=== PATIENT | female | born 1955 | race Caucasian/White ===

== ENCOUNTER 2018-08-26 12:08 | Outpatient (REF) | payer BC, SELFPAY ==
--- NOTE | 2018-08-26 11:15 | PAPFT_PTH ---
PATIENT: Natasha Matamoros LOC: [facility] U#:[id number] AGE/SX: 62/F ROOM: RE08/26/[address]: Mauri Gee : 1955 BED: DIS: 08/26/2018 SPEC #: [id number] RECD: 08/26/18 13:03 STATUS: KIANNA REQ #: [id number] KIT: 08/26/18 11:[address]: Mauri Gee DEPT: [facility] Cytology RECD BY: Ranjana Stevenson Tissues: 1 - CX/ENDOCX FOR PAP SMEARS Procedures: PAP THIN PREP/UVM Screening HPV DNA PROBE Comments: [id number]
== END 2018-08-26 12:28 ==
LOC: NCHCN 12:08
PROVIDERS: PCP Family Medicine; Visit Provider Family Medicine
DX: Z12.4 Encounter for screening for malignant neoplasm of cervix (principal); Z11.51 Encounter for screening for human papillomavirus (HPV)
CPT/HCPCS: 88142; 87624

== ENCOUNTER 2018-09-01 00:34 | Outpatient (CLI) | payer BC, SELFPAY ==
--- NOTE | 2018-09-01 08:36 | DI.US_ITS ---
SYMPTOM/DIAGNOSIS: RECURRENT DVT, ON ELIQUIS DUPLEX VENOUS ULTRASOUND LEFT LOWER EXTREMITY: The study was carried out according to the usual protocol. The superficial, femoral, popliteal and proximal trifurcation in the superior portion of the leg are well seen. Good compressibility is noted throughout. Flow is demonstrated and flow augmentation was easily elicited with calf compression. SUMMARY: There is no evidence of DVT.
== END 2018-09-01 00:54 ==
PROVIDERS: PCP Family Medicine; Visit Provider Family Medicine
DX: Z86.718 Personal history of other venous thrombosis and embolism (principal); Z79.01 Long term (current) use of anticoagulants
CPT/HCPCS: 93971

== ENCOUNTER 2018-09-09 01:20 | Outpatient (CLI) | payer BC, SELFPAY ==
--- NOTE | 2018-09-09 10:01 | DI.RAD_ITS ---
SYMPTOMS/DIAGNOSIS: LT GROIN PAIN, R10.32 LEFT HIP AND PELVIS: Severe left hip DJD is demonstrated with joint space narrowing, articular sclerosis and periarticular hypertrophic spurring. A frontal image of the pelvis also reveals severe DJD involving the right hip.
== END 2018-09-09 01:40 ==
PROVIDERS: PCP Family Medicine; Visit Provider Family Medicine
DX: R10.32 Left lower quadrant pain (principal); M16.0 Bilateral primary osteoarthritis of hip
CPT/HCPCS: 73502

== ENCOUNTER 2018-10-22 14:15 | Outpatient (CLI) | payer BC, SELFPAY ==
--- NOTE | 2018-10-22 13:43 | DI.RAD_ITS ---
SYMPTOM/DIAGNOSIS: LEFT HIP PAIN AP PELVIS. Routine examination was performed. Comparison 09/09/18 In the right hip there is marked narrowing of subchondral sclerosis and prominent osteophytes arising from the acetabulum and femoral head. In the left hip there is marked narrowing of the joint space. There is prominent subchondral sclerosis and fiorella-articular spurring involving the acetabulum in the femoral head. There are mild degenerative changes seen at the sacroiliac joints. The symphysis pubis is intact. No acute fractures identified. The soft tissues are unremarkable. IMPRESSION: Severe osteoarthritis of the hips bilaterally.
== END 2018-10-22 14:35 ==
PROVIDERS: PCP Family Medicine; Visit Provider Physician Assistant
DX: M25.552 Pain in left hip (principal); M17.0 Bilateral primary osteoarthritis of knee; M53.3 Sacrococcygeal disorders, not elsewhere classified
CPT/HCPCS: 72170

== ENCOUNTER 2018-12-18 01:30 | Outpatient (CLI) | payer BC, SELFPAY ==
[2018-12-18 11:50] LABS: HCT 44.6 % (36.0-46.0); Mean Corp. HGB Concentration 33.6 g/dL (32.0-36.0); Mean Corpuscular Hemoglobin 33.6 pg (27.0-33.0); Mean Platelet Volume 10.2 fL (8.0-11.0); Platelet Count 183 x1000/uL (130-400); RBC 4.46 m/cumm (4.00-5.20); RBC Distribution Width 13.2 % (11.7-14.6); White Blood Cell Count 5.12 k/cumm (4.4-10.8)
[2018-12-18 12:23] LABS: Anion Gap 8.5 mmol/L (3-11); BUN 9 mg/dL (7-18); CO2 28.5 mmol/L (21.0-32.0); CREATININE 0.57 mg/dL (0.55-1.02); Calcium 9.6 mg/dL (8.5-10.1); Chloride 104 mmol/L (98-107); Glucose 99 mg/dL (70-100); Potassium 3.7 mmol/L (3.5-5.1); Sodium 141 mmol/L (136-145)
== END 2018-12-18 01:50 ==
PROVIDERS: PCP Family Medicine; Visit Provider Student in an Organized Health Care Education/Training Program
DX: M25.552 Pain in left hip (principal); M16.12 Unilateral primary osteoarthritis, left hip; Z01.812 Encounter for preprocedural laboratory examination; Z01.818 Encounter for other preprocedural examination
CPT/HCPCS: 36415; 80048; 85027; 86850; 86900; 86901

== ENCOUNTER 2018-12-23 10:37 | Inpatient (IN) | payer BC, SELFPAY ==
[2018-12-23] VITALS (10 sets, daily range): BP systolic 78–139; BP diastolic 42–77; PULSE 45–71; RESP 12–19; TEMP 36.2–36.9; O2SAT 94–99
--- NOTE | 2018-12-23 11:07 | NUR.NOTE ---
Nursing Note: Measured and applied to right leg.
[2018-12-23] MEDS: Acetaminophen 500 MG TAB 1000 MG PO ×2 (11:18→19:35)
[2018-12-23] MEDS: Lactated Ringers 1,000 ML 80 ML IV ×2 (11:18→16:05)
[2018-12-23] MEDS: Celecoxib 200 MG CAP 400 MG PO (11:18)
[2018-12-23] MEDS: ceFAZolin 2 GM/50 ML BAG IVPB (12:34)
[2018-12-23] MEDS: Ketorolac 30 MG/ML VIAL (13:53)
[2018-12-23] MEDS: Normal Saline 20 ML VIAL (13:53)
[2018-12-23] MEDS: Bupivacaine 0.25% Pres-Free 30 ML VIAL (13:53)
--- NOTE | 2018-12-23 14:32 | DI.RAD_ITS ---
EXAM: XR HIP LT IN OR CLINICAL HISTORY: LEFT HIP DJD. TECHNIQUE: 2D digital imaging was performed. COMPARISON: XR PELVIS AP from 10/22/2018 FINDINGS: BONES: No acute fracture is present. No bony destructive lesion is seen. JOINTS: No dislocation present. Intraoperative films show placement of a left total hip replacement. The orthopedic hardware appears in good position. SOFT TISSUE: Normal. IMPRESSION: Status post left total hip replacement. Please refer to the procedure report for complete details.
--- NOTE | 2018-12-23 15:38 | DI.RAD_ITS ---
EXAM: XR PELVIS AP INDICATION: Left hip DJD s/p L SHAMIR. COMPARISON: XR PELVIS AP from 10/22/2018 TECHNIQUE: 2D digital imaging was performed. FINDINGS: A left hip prosthesis is in excellent position, surrounding bone intact.
--- NOTE | 2018-12-23 16:51 | ROE_ITS ---
Date of service: 12/23/18 Time of Service: 14:51 Operative Note Operative Note DATE OF PROCEDURE: 12/23/18 PRE-OP DIAGNOSIS: Left Hip Osteoarthritis POST-OP DIAGNOSIS: same PROCEDURE: Left Anterior Total Hip Arthroplasty SURGEON: Carlos Carlos [employer] COACH: Slick Boothe ANESTHESIA: spinal ESTIMATED BLOOD LOSS: 450 PATHOLOGY: none sent COMPLICATIONS: None Patient was transported to: PACU Patient's condition: stable Implants: 1. Depuy [place] Acetabular Component, 54 mm 2. Depuy Acetabular Liner, 54 x 36 mm, +4 lateralized 3. Depuy Corail standard Collared femoral Stem, Size 11 4. Depuy Altrx Ceramic Femoral Head, Size 36+1.5 mm Indications: I have seen Natasha in clinic for symptoms of hip arthritis, confirmed with radiographic findings. Natasha has exhausted nonoperative methods and was having significant limitations in daily function and desired better function and less pain. I discussed the technical details of a hip replacement. I explained the risks of the procedure to include, but not limited to, bleeding, infection, pain, stiffness, fracture, damage to nerves and vessels, damage to muscles and tendons, loosening, instability, leg length inequality, need for repeat procedure, blood clot and cardiopulmonary demise. Despite these risks, Natasha elected to proceed. Findings: There was significant signs of arthritis throughout the hip. Large lateral neck osteophytes were encountered and significant acetabular osteophytes were identified and removed. Procedure Description: Natasha was greeted in the preoperative holding area where the correct side was identified and marked. The consent was reviewed with the patient and signed. The history and physical was updated. All questions were answered. Natasha was taken back to the operating room. A spinal anesthestic was then administered. The patient was placed into the supine position on the operating room table. The patient was then positioned onto the ARCH table. Both feet were wrapped with Webrill cotton wrap along with Coban. The feet were placed in specialized boots for the ARCH table, well seated within the boot and secured. SCDs were applied. The patient was then slid down onto a peroneal post and the nonoperative leg was secured in a leg echavarria attached to the table. The operative side was placed into the ARCH table attachment and bed height and positioning was secured. A preoperative AP pelvis was obtained to serve as a reference for determining leg lengths. Prophylactic antibiotics in the form of cefazolin were administered. 1g of Tranxemic Acid was given intravenously within 30 minutes of incision. The left leg was then prepped with Chloraprep and draped in a standard fashion. A second prep was performed prior to placing the final shower-curtain type drape with Iodine impregnated skin protection. A timeout to confirm correct identity, side and site, procedure, allergies, anesthesia, and medical concerns was performed. An obliquely oriented incision was made starting lateral to the ASIS and running distal over the Tensor Fascia Helen (TFL) muscle belly toward the fibular head, approximately 10cm. The skin and soft tissue was dissected sharply, through Marilynn?s fascia, and to the fascia of the TFL. With the fascia and superior border of the IT band identified, the fascia was incised with a new knife just above any perforators from the IT band. The TFL muscle belly was bluntly dissected away from the fascia and moved laterally. The fat between TFL and rectus was identified to ensure the dissection was not within the TFL. Blunt dissection created space between abductors and the capsule and retractor was placed over the lateral femoral neck. The fibers of the rectus femoris tendon were identified and these were freed from the anterior capsule. A second cobra retractor was placed around the medial femoral neck. The TFL was further retracted laterally to show the deep fascia. Careful dissection through this layer identified three main crossing vessels of the lateral femoral circumflex. These were cauterized in multiple locations and then cut without any noticeable bleeding. The TFL was further released bluntly from the deep fascia to expose anterior hip capsule and fat The Gonzalez orthopaedic retractor was then placed beneath the TFL and against sartorius and medial soft tissues to protect and retract the soft tissues. A T-capsulotomy was then performed starting at the superior lateral acetabulum and moving distally to the intertrochanteric ridge. These capsular flaps were tagged with a No. 1 Ethibond and elevated from within. The capsular flaps were released to the shoulder of the lateral neck and to the lesser trochanter to give excellent visualization of the proximal femur. A neck osteotomy was performed using an oscillating saw based on preoperative templates. This cut started in the shoulder and of the lateral neck and exited medially. The saw was at all times directed medially to avoid injury to the greater trochanter. 6cm of traction was applied to the leg and the osteotomy opened. The femoral head was removed with a corkscrew, making sure to protect the TFL on its exit. This was measured on the back table to determing the starting reamer size. Portions of the rectus obscuring visualization were minimally elevated off the superior acetabulum. An anterior retractor was placed over the anterior wall between capsule and labrum and held with the Gripper retraction system. A posterior retractor was placed similarly. This provided excellent visualization. The contents of the cotyloid fossa were removed with electrocautery and the labrum was removed with a knife. There was a notable floor osteophyte. There was significant chondromalacia of the superior acetabulum. Acetabular reaming began with a 49 mm reamer. This first reaming was directed anterior to posterior and medial to get down to the true floor. This was inspected and reamed until the true floor was reached. I then reamed sequentially up to a 53 mm reamer where good fit was obtained. The larger reamers were oriented based on anatomical reference of the anterior and lateral lopez to ensure proper abduction and anteversion. Positioning and size was confirmed with the fluoroscopy. A 54 mm Depuy [place] acetabular component was selected. The acetabulum was reamed around the periphery with the selected acetabular size to prevent a rim fit. The deep tissues were irrigated. The acetabular component was then impacted in a position of about 40-45 degrees of abduction and 15-20 degrees of anteversion, using the patient?s anatomy as the ultimate landmark. Fluoroscopy was used to confirm this. There was excellent functional consultant of the acetabular component and the inserting handle was removed. The acetabular liner, Depuy 54 x 36 mm polyethylene liner, was inserted and lined up with the tines of the acetabular component. There was no soft tissue interposition. The liner was then impacted into position and confirmed to be well-seated. A portion of the fiorella-articular cocktail was then injected around the acetabulum into the capsule and periosteum. This cocktail consisted of 50cc of 0.25% Bupivicaine and 20cc of Exparel, expanded to a total of 120cc. Traction was released from the femur. The leg was rotated to 120 degrees. Any remaining medial capsule was released until the lesser trochanter was easily palpable. A Chris retractor was placed medially. The lateral capsule was further released into the shoulder to allow access to the greater trochanter. A Chris retractor was placed over the greater trochanter which allowed the trochanter to flip in front of the capsule for excellent exposure. The leg was brought down into maximal extension and 20 degrees of adduction while ensuring there was no impingement on the acetabulum. Any remnant capsule within the trochanter was released. Piriformis and obturator externis were identified and protected. There was excellent access to the proximal femur. The lateral neck remnant was removed with a rongeur. A blunt canal probe was used to identify the canal and trajectory for later broaching. A box osteotome initiated the broach course. A small curved rasp and a curved curette were used to work laterally. Broaching then began with a size 8 Corail broach. This was inserted manually around the trochanter and into the canal before mallet blows. The broach was seated to the neck cut level based on the neck cut and the preoperative template. Sequential broaching was continued until a tight fit was obtained with good rotational control of the femur. A trial standard neck was inserted along with a +1.5 trial head. The leg was brought out of extension and adduction and then reduced with traction and internal rotation. The leg was stable anteriorly in a position of 30 degrees of extension and 90 degrees of external rotation. Fluoroscopy was used to ensure there was no fracture and the stem was seated well. Leg lengths were checked with an AP pelvis and pelvic reference points. Once content with the desired offset and leg lengths, the leg was brought back into extension, external rotation and adduction. The periosteum and surrounding tissue was injected with remaining portion of the fiorella-articular cocktail. The proximal femur was irrigated as well as the deep tissues. The Depuy Corail standard collared stem, size 11, was then manually inserted into the proximal femur making sure to control rotation. It was then malleted into position with light blows, giving breaks to allow bone expansion and decrease risk of fracture. The selected Depuy Altrx Ceramic Head, size 36+1.5 mm, was then placed onto the clean and dry trunnion and secured with impaction onto the tapered fit. The leg was brought back out of extension and adduction and reduced with traction and internal rotation. Stability was confirmed with no shuck at 90 degrees of external rotation and 30 degrees of extension. No impingement through range of motion arc. Final x-ray images were obtained with fluoroscopy to confirm adequate positioning and no intraoperative fracture. The deep tissues were thoroughly irrigated with a pulse lavage. The second dose of TXA 1g was administered intravenously. The capsule was then reapproximated with the previously placed Ethibond sutures. The TFL fascia was finally closed with a No. 2 Stratafix, barbed suture. Deep tissues were then reapproximated with 0 Vicryl and a running 2-0 Vicryl. The skin was closed with a running 4-0 Monocryl in a subcuticular fashion. This was reinforced with skin glue. A Mepilex silver dressing was applied. At the end of the case, all counts were correct. Natasha was transferred to the hospital bed without difficulty and suffering no apparent complication. Natasha has a good prognosis. Physical therapy will start today and without restrictions, weight-bearing as tolerated. Eliquis twice daily will be used for DVT prophylaxis as per her baseline.
--- NOTE | 2018-12-23 18:16 | NUR.NOTE ---
Nursing Note: Pt to MS floor from PACU at 1545. Pt arrived in bed; no transfer needed. VSS. A&Ox3. Family at bedside. Pt oriented to MS floor, call [facility]field, phone etc. Call butterfield within reach. RN will continue to monitor.
[2018-12-23] MEDS: Celecoxib 100 MG CAP PO (19:35)
[2018-12-23] MEDS: Apixaban 5 MG TAB PO (19:35)
[2018-12-24] MEDS: oxyCODONE 5 MG TAB PO ×2 (02:21→08:34)
[2018-12-24 04:15] VITALS: BP 118/62; PULSE 69; RESP 18; TEMP 36.7; O2SAT 97
[2018-12-24] MEDS: Lactated Ringers 1,000 ML 80 ML IV (05:00)
--- NOTE | 2018-12-24 07:27 | W.PM.DS.N ---
Date of service: 12/24/18 Time of Service: 07:27 DS: Diagnosis Discharge Diagnosis (1) Degenerative joint disease of left hip: Status: Acute Discharge Plan Disposition Patient Disposition: HOME Condition: Good Discharge Details Reason For Visit: LEFT HIP DJD Admit Date/Time: 12/23/18 10:37 Admit Provider: Carlos Carlos Attending Provider: Carlos Carlos [facility]: Patient was admitted to the medical/surgical floor following the procedure. It was tolerated well without any notable medical, surgical, or anesthetic complications. Mobilization began postoperatively. The haque catheter was removed and voiding spontaneously. Vitals were stable. Physical therapy worked with the patient and was cleared for discharge home. No acute medical issues. Home Meds and New Rx's Prescriptions: New acetaminophen 500 mg tablet 1,000 mg PO Q8H PRN (Reason: pain) Qty: 90 RF: 3 pantoprazole 40 mg tablet,delayed release (DR/EC) 40 mg PO DAILY Qty: 30 RF: 0 oxycodone 5 mg tablet 5 mg PO Q4H Qty: 12 RF: 0 celecoxib 100 mg capsule 100 mg PO BID Qty: 60 RF: 0 Continued citalopram 10 mg tablet 10 mg PO DAILY RF: 0 cholecalciferol (vitamin D3) 1,000 unit capsule 1,000 unit PO DAILY RF: 0 omega-3 fatty acids 500 mg capsule 500 mg PO DAILY RF: 0 hydrochlorothiazide 25 mg Tablet 25 mg PO DAILY RF: 0 Eliquis 5 MG tablet 5 mg PO BID RF: 0 Discontinued enoxaparin [Lovenox] 40 mg/0.4 mL syringe 40 mg SC DAILY Qty: 3 RF: 0 Discharge Instructions Additional Instructions: Dr. Carlos?s Total Hip Discharge Instructions Activity: The most important activity is to walk. You should try to take short walks a few times a day. You have no restrictions on movement or positioning, but do not try to force what you do. You will find some stiffness and weakness with hip flexion (lifting your knee). Do not try to strengthen this too early, continue to practice walking and stairs and this will come. - Outpatient physical therapy can be helpful to help return you to a normal gait and improve your flexibility and strength. This can start around 2 weeks. For some patients, it?s not necessary. Usually this is determined at the time of discharge or at the first post-operative visit. - You should wear the JENNIFER hose on both legs for 2 weeks. Dressing: Keep the surgical dressing in place for at least one week. After the first week it may be removed and replace with light gauze and tape or nothing. It may get wet after 3 days but avoid soaking the dressing. If it gets wet, just lightly pat dry. It is important to always keep some gauze between skin folds, especially when you are sitting. Spend some time with the wound exposed when you are lying flat as the incision does wrinkle onto itself. Medications: - You should take Tylenol and an anti-inflammatory Celebrex as your primary pain control medications - You have been prescribed a stronger pain medication Oxycodone for breakthrough pain, take as needed as prescribed. - You have also been prescribed a stomach acid reduction agent Pantoprozole to help reduce stomach acid and reflux. - You will be taking Eliquis per usual for DVT prevention unless instructed otherwise. - If you have constipation you should take Colace or Miralax (both cytb-[id number]-anvdysc). It takes most people 3-4 days to have a bowel movement. Follow-up: 2 weeks Referrals: Carlos Carlos MD [ [facility] STAFF PHYSICIAN] - Activity:: Activity as Tolerated Equipment/Supplies:: Walker Diet:: As Tolerated Discharge Orders Discharge Orders: Discharge Order (Routine); Ordered 12/24/18 Ordered By: Carlos Carlos DS: Summary Status at Discharge Functional status at discharge: uses cane/walker Overall status at discharge: patient is progressing back to baseline Mental Status: mental status grossly normal Speech and Movement: speech and movement normal Mood: congruent mood Affect: normal affect Exam Psych Mental Status: mental status grossly normal Speech and Movement: speech and movement normal Mood: congruent mood Affect: normal affect DS: Data Vitals/I&O Vitals and I&O: Vital Signs Temperature 36.7 C 12/24/18 04:15 Temperature Source Skin 12/24/18 04:15 Pulse 69 12/24/18 04:15 Pulse Rhythm Regular 12/23/18 19:35 Respiratory Rate 18 12/24/18 04:15 Respiratory Effort Non-Labored 12/23/18 19:35 Respiratory Depth Normal 12/23/18 19:35 Respiratory Pattern Normal 12/23/18 19:35 Blood Pressure 118/62 12/24/18 04:15 Pulse Oximetry 97 12/24/18 04:15 Respiratory End-tidal CO2 35 12/23/18 15:35 Oxygen Delivery Method Room Air 12/24/18 04:15 Oxygen Flow Rate 0 12/24/18 04:15 Pain Level 0 12/24/18 04:15 Comment 12/24/18 04:15 Intake & Output 12/23/18 12/23/18 12/24/18 11:59 23:59 11:59 Intake Total 1762.666 / 5415.376 9467 / 1100 Output Total 1300 / 1300 Balance 462.666 / 028.459 0012 / 1100 Weight 83.4 kg Intake: IV 972.666 / 597.134 5480 / 1100 Oral 790 / 790 Output: Urine 850 / 850 Estimated Blood Loss 450 / 450 Other: Urine Color Yellow Urine Appearance Clear Emesis Description None PFSH Family History (Updated 12/18/18 @ 10:37 by Kinsey Da Silva RN) Other DVT (deep venous thrombosis) Social History Smoking/Tobacco Use Status: Former Tobacco Use Drug use: Never
[2018-12-24 08:30] VITALS: BP 139/83; PULSE 60; RESP 16; TEMP 37; O2SAT 98
[2018-12-24] MEDS: Acetaminophen 500 MG TAB 1000 MG PO (08:34)
[2018-12-24] MEDS: hydroCHLOROthiazide 25 MG TAB PO (08:35)
[2018-12-24] MEDS: Pantoprazole 40 MG TABCR PO (08:35)
[2018-12-24] MEDS: Apixaban 5 MG TAB PO (08:35)
[2018-12-24] MEDS: Celecoxib 100 MG CAP PO (08:35)
[2018-12-24] MEDS: Cholecalciferol (Vitamin D3) 1,000 UNIT TAB 1000 UNITS PO (08:36)
[2018-12-24] MEDS: Citalopram 10 MG TAB PO (08:36)
[2018-12-24] MEDS: Dexamethasone 4 MG TAB PO (08:36)
--- NOTE | 2018-12-24 09:02 | IN_ITS ---
Date of service: 12/24/18 Time of Service: 08:40 PT Notes Inpatient Physical Therapy Evaluation Date: 12/24/2018 Referring Doctor: Carlos Carlos PT Orders: PT CONSULT: S/P L SHAMIR Precautions: Fall. Standard. WBAT on left LE Patient Profile/Admitting Diagnosis: 63-year-old female with primary unilateral osteoarthritis of left hip status post L SHAMIR on POD 1. PMHX: Medical History (Updated 12/21/18 @ 16:14 by SAY Harvey) Central serous chorioretinopathy of left eye (Acute) left eye blury History of deep venous thrombosis (Acute) Chronic anticoagulation on Eliquis HTN (hypertension) (Chronic) Psoriasis (Chronic) Family History (Updated 12/18/18 @ 10:37 by Kinsey Da Silva RN) Other DVT (deep venous thrombosis) Social History/Home Situation: Patient lives by herself in a one story home with two steps enter. Natasha was independent with all aspects of ADLs without the need for an assistive ambulatory device nor adaptive equipment. She works for the [employer] hopes to go back Current Functional Limitations: Patient presents with functional limitations as indicated below Equipment Owned/DME: FWW Subjective: Patient reports 8/10 out of 10 pain. She denies dizziness headache, lightheadedness, and she agrees to PT evaluation. Objective: General Observation: Patient is seen ambulating independently with FWW out of bathroom. Mental Status: Alert and oriented x 4 Pain: 8/10 ROM: Right Lower Extremity: Hip flexion WFL. Hip abduction WFL. Knee flexion WFL. Ankle dorsiflexion WFL. Ankle plantarflexion WFL. Left Lower Extremity: Hip flexion allows about 20-30 degrees beyond 90 while seated at edge of bed. Hip abduction WFL. Knee flexion WFL. Ankle dorsiflexion WFL. Ankle plantarflexion WFL. Strength: Right Lower Extremity: Hip flexors 5/5. Hip abductors 5/5. Knee flexors 5/5. Knee extensors 5/5. Ankle dorsiflexors 5/5. Ankle plantarflexors 5/5. Left Lower Extremity: Hip flexors 3-/5. Hip abductors 4/5. Knee flexors 5/5. Knee extensors 5/5. Ankle dorsiflexors 5/5. Ankle plantarflexors 5/5. Bed Mobility/Transfers: Rolling independent Supine to sit independent Sit to supine independent Sit to stand independent Stand to sit independent Bed to chair supervision Chair to bed supervision Gait: Patient ambulated 150'+150' feet with supervision and wheelchair follow. She ascended and descended three 4-inch steps, and two 6-inch steps using reciprocal gait. Patient exhibited decreased step length, decreased stance time on L LE, and decreased gait speed overall. Balance: Static Sitting: Normal Dynamic Sitting: Normal Static Standing: Fair Dynamic Standing: Fair Special Tests: Mobility Limitations Standardized Measure [facility] AM-PAC 6 clicks Basic Mobility Inpatient Short Form: Raw Score: 21 CMS Score: 33% Informed Consent/Education: Patient instructed in purpose of PT consult and plan of care. Assessment: patient is 63 year old female s/p L SHAMIR POD 1, due to primary loss or arthritis. Patient reports she will be discharged in the care of her sister. She is a motivated individual who is ambulating well considering the time passed since her surgery. Her comorbidities are expected to play a little to no role in her recovery process. Patient presents with clinical signs and symptoms consistent with current/admitting diagnoses that have resulted to mobility limitations, gait instability, generalized weakness, and impairment of motor control as demonstrated by the following impairment level findings: 1. Decreased strength to B LE major muscle groups 2. Impaired sitting/standing balance 3. Impaired activity tolerance 4. Limitation of joint range of motion in L hip Impairments are contributing to the following functional limitations: 1. Dependent bed mobility skills 2. Increased dependence with transfers 3. Inability to safely ambulate without assistive device and physical assistance 4. Increase completion time for mobility ADL performance 5. Increased fall risk 6. Inability to negotiate steps alone safely Patient is assessed as a [id number] complexity based on the following: History: 63-year-old female who is L SHAMIR with relevant medical history significant for hypertension and history of DVT Examination: Demonstrable impairment in strength, balance, and range of motion with underlying impairments and functional limitations as documented above Presentation: Evolving Decision Makin Low complexity DISCHARGE RECOMMENDATIONS: Patient is to be discharged under the care of her sister with outpatient services in two weeks. TREATMENT CODE/TIME: 07186 x 20 minutes beginning at 8:48 AM. Thank you very much for this referral. Kevin Jimenez [facility] With supervision of: Subha Vickers PT, DPT, CLT [facility]
== END 2018-12-24 11:51 | disposition home or self-care (01) | DRG 470 ==
LOC: PDS 10:38 → MS 14:48
PROVIDERS: Admitting Provider Student in an Organized Health Care Education/Training Program; PCP Family Medicine; Visit Provider Student in an Organized Health Care Education/Training Program
PROC: 0SRB04A Replacement of Left Hip Joint with Ceramic on Polyethylene Synthetic Substitute, Uncemented, Open Approach (ICD-10-PCS; CPT 27130; principal; 2018-12-23 11:45)
DX: M16.12 Unilateral primary osteoarthritis, left hip (principal); M25.552 Pain in left hip; Z96.642 Presence of left artificial hip joint; Z86.718 Personal history of other venous thrombosis and embolism; Z79.01 Long term (current) use of anticoagulants; I10 Essential (primary) hypertension
CPT/HCPCS: 27130; 97161; NC; 72170; 73501; J0690; J1885; J2250; J2405; J3010; J8540

== ENCOUNTER 2019-01-08 12:44 | Outpatient (CLI) | payer BC, SELFPAY ==
--- NOTE | 2019-01-08 10:31 | DI.RAD_ITS ---
EXAM: XR HIP LT COMPLETE AP PELVIS INDICATION: f/u L SHAMIR. COMPARISON: XR PELVIS AP from 12/23/2018 TECHNIQUE: 2D digital imaging was performed. FINDINGS: Three views were obtained. Total hip joint replacement noted in position. The components appear wel l seated in the left acetabulum and femur. Note is made of severe degenerative change of the right h ip. IMPRESSION:
== END 2019-01-08 13:04 ==
PROVIDERS: PCP Family Medicine; Visit Provider Student in an Organized Health Care Education/Training Program
DX: M25.552 Pain in left hip (principal); Z96.642 Presence of left artificial hip joint; M16.11 Unilateral primary osteoarthritis, right hip
CPT/HCPCS: 73502

== ENCOUNTER 2019-12-02 11:26 | Outpatient (REF) | payer BC, SELFPAY ==
[2019-12-02 22:41] LABS: HCT 43.8 % (36.0-46.0); HGB 14.7 g/dL (11.2-15.7); MCH 34.9 pg (27.0-33.0); MCHC 33.6 % (32.0-36.0); MPV 11.3 fL (8.0-11.0); Platelet Count 152 10^3/uL (130-400); RBC 4.21 10^6/uL (3.93-5.22); RDW 13.3 % (11.7-14.6); RDW-SD 51.2 fL; WBC 4.72 10^3/uL (4.4-10.8)
[2019-12-02 23:10] LABS: ALT 65 U/L (14-59); AST 48 U/L (15-37); Alkaline Phosphatase 68 U/L (46-116); Anion Gap 7.1 mmol/L (3-11); BUN 12 mg/dL (7-18); Bilirubin, Total 1.1 mg/dL (0.2-1.0); CO2 31.9 mmol/L (21.0-32.0); CREATININE 0.64 mg/dL (0.55-1.02); Calcium 9.7 mg/dL (8.5-10.1); Calculated LDL 92 mg/dL (<100); Chloride 104 mmol/L (98-107); Cholesterol 220 mg/dL (<200); Glucose 99 mg/dL (74-106); HDL Cholesterol 122 mg/dL (40-60); Potassium 3.9 mmol/L (3.5-5.1); Sodium 143 mmol/L (136-145); Triglyceride 33 mg/dL (<150)
[2019-12-02 23:58] LABS: Vitamin B12 387 pg/mL (193-986)
[2019-12-04 10:11] LABS: Hepatitis C Ab w Rflx HCV PCR Negative (Negative)
== END 2019-12-02 11:46 ==
LOC: NCHCN 11:26
PROVIDERS: PCP Family Medicine; Visit Provider Family Medicine
DX: D75.89 Other specified diseases of blood and blood-forming organs (principal); I10 Essential (primary) hypertension; F10.99 Alcohol use, unspecified with unspecified alcohol-induced disorder; Z11.59 Encounter for screening for other viral diseases; Z13.220 Encounter for screening for lipoid disorders
CPT/HCPCS: 80053; 80061; 85027; 86803; 82607

== ENCOUNTER 2022-01-01 12:25 | Outpatient (REF) | payer BC, MEDICARE, SELFPAY ==
[2022-01-01 15:51] LABS: HCT 39.5 % (36.0-46.0); HGB 13.4 g/dL (11.2-15.7); MCH 33.6 pg (27.0-33.0); MCHC 33.9 % (32.0-36.0); MCV 99 fL (80-95); MPV 10.4 fL (8.0-11.0); Platelet Count 159 10^3/uL (130-400); RBC 3.99 10^6/uL (3.93-5.22); RDW-SD 47.5 fL
[2022-01-01 16:47] LABS: ALT 34 U/L (14-59); AST 35 U/L (15-37); Albumin 3.9 g/dL (3.4-5.0); Alkaline Phosphatase 84 U/L (46-116); Anion Gap 8.5 mmol/L (3-11); BUN 11 mg/dL (7-18); Bilirubin, Total 0.6 mg/dL (0.2-1.0); CO2 30.5 mmol/L (21.0-32.0); CREATININE 0.6 mg/dL (0.55-1.02); Calcium 8.9 mg/dL (8.5-10.1); Chloride 104 mmol/L (98-107); Estimated GFR 99.55 (mL/min/1.73m2); Folate 8.1 ng/mL (8.6-20.0); Glucose 76 mg/dL (74-106); Magnesium 1.2 mg/dL (1.8-2.4); Potassium 3.6 mmol/L (3.5-5.1); Sodium 143 mmol/L (136-145); Total Protein 6.8 g/dL (6.4-8.2); Vitamin B12 309 pg/mL (193-986)
== END 2022-01-01 12:26 | disposition home or self-care (01) ==
LOC: NCHCN 12:25
PROVIDERS: PCP Family Medicine; Visit Provider Family Medicine
DX: F10.10 Alcohol abuse, uncomplicated (principal); K70.10 Alcoholic hepatitis without ascites; D75.89 Other specified diseases of blood and blood-forming organs
CPT/HCPCS: 80053; 85027; 82607; 82746; 83735

== ENCOUNTER 2022-01-15 07:59 | Day surgery (SDC) | payer BC, SELFPAY ==
[2022-01-15 08:25] VITALS: BP 162/92; PULSE 80; RESP 16; TEMP 36.2; O2SAT 97
--- NOTE | 2022-01-15 08:41 | ANES.PREOP_ITS ---
General Info Date of Service Date Performed: 01/15/22 Height: 5 ft 2 in Weight: 78.5 kg Body Mass Index (BMI): 31.6 Surgical Procedure: Operation Date: 01/15/22 10:40 Proposed Procedure Side Surgeon p Cataract Extraction with IOL Implant Right Flakito Riojas MD Meds Allergies and Home Medications Allergies Allergy/AdvReac Type Severity Reaction Status Date / Time No Known Allergies Allergy Unverified 01/15/22 08:32 Home Medication Medication Instructions Recorded citalopram 10 mg tablet 10 mg PO DAILY 10/22/18 apixaban 5 mg tablet (Eliquis) 5 mg PO BID 12/18/18 cholecalciferol (vitamin D3) 25 1,000 unit PO DAILY 12/18/18 mcg (1,000 unit) capsule hydrochlorothiazide 25 mg tablet 25 mg PO DAILY 12/18/18 omega-3 fatty acids 500 mg capsule 500 mg PO DAILY 12/18/18 acetaminophen 500 mg tablet 1,000 mg PO Q8H PRN pain #90 tabs 12/24/18 Current Visit Medications: Current Medications Generic Name Dose Route Start Last Admin Trade Name Freq PRN Reason Stop Dose Admin Acetaminophen 1,000 mg 01/15/22 06:00 Acetaminophen 500 Mg Tab PO Q4H PRN PRN Miscellaneous Medication 0 ml 01/15/22 06:00 Prednisolone 1%, Moxifloxacin 0.5%, Nepafenac 0.1% 5ml Btl OD DIRECTED [facility] Miscellaneous Medication 0 ml 01/15/22 06:00 Tropicam./Phenyleph. 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 History of deep venous thrombosis Chronic anticoagulation on Eliquis HTN (hypertension) Psoriasis Tobacco Smoking/Tobacco Use Status: Former Tobacco Use Alcohol Alcohol Intake: current Alcohol intake frequency: a few times a week Alcohol type: wine Substance Use Substance use: Never Substance use type: does not use Vital Signs and Lab Results Vital Signs Most Recent Vital Signs in EMR: Most Recent Vital Signs Temp Pulse Resp BP Pulse Ox 36.2 C L 80 16 162/92 H 97 01/15/22 08:25 01/15/22 08:25 01/15/22 08:25 01/15/22 08:25 01/15/22 08:25 Lab Results Blood Type / Crossmatch: No Data to Display Complete Blood Count: White Blood Count 6.30 10^3/uL (4.4-10.8) 01/01/22 11:55 Red Blood Count 3.99 10^6/uL (3.93-5.22) 01/01/22 11:55 Hemoglobin 13.4 g/dL (11.2-15.7) 01/01/22 11:55 Hematocrit 39.5 % (36.0-46.0) 01/01/22 11:55 Platelet Count 159 10^3/uL (130-400) 01/01/22 11:55 Complete Metabolic Panel: Sodium 143 mmol/L (136-145) 01/01/22 11:55 Potassium 3.6 mmol/L (3.5-5.1) 01/01/22 11:55 Chloride 104 mmol/L (98-107) 01/01/22 11:55 Carbon Dioxide 30.5 mmol/L (21.0-32.0) 01/01/22 11:55 BUN 11 mg/dL (7-18) 01/01/22 11:55 Creatinine 0.6 mg/dL (0.55-1.02) 01/01/22 11:55 Est GFR (CKD-EPI 2020) 99.55 (mL/min/1.73m2) 01/01/22 11:55 Magnesium 1.2 mg/dL (1.8-2.4) L 01/01/22 11:55 Calcium 8.9 mg/dL (8.5-10.1) 01/01/22 11:55 Albumin 3.9 g/dL (3.4-5.0) 01/01/22 11:55 Glucose 76 mg/dL (74-106) 01/01/22 11:55 Liver Function Panel: Alanine Aminotransferase (ALT/SGPT) 34 U/L (14-59) 01/01/22 11: 55 Aspartate Amino Transf (AST/SGOT) 35 U/L (15-37) 01/01/22 11:55 Coagulation Panel: No Data to Display Cardiac Panel: No Data to Display Arterial Blood Gas: No Data to Display Venous Blood Gas: No Data to Display Pancreas Panel: No Data to Display Thyroid Panel: No Data to Display Infectious Disease: No Data to Display Blood Cultures: No Data to Display Toxicology Panel: No Data to Display Anesthesia Assessment and Plan Anesthesia History Personal History: No History of Anesthesia Complications Family History: No Family History of Anesthesia Complications Exercise Tolerance Exercise Tolerance: Metabolic Equivalents>4 Pertinent Negatives Pertinent Negatives: No Symptoms of GERD Cardiac & Pulmonary Exam Cardiac Exam: Normal S1/S2 Heart Sounds Pulmonary Exam: Clear Bilateral Breath Sounds Implantable Cardiac Device Does patient have a Pacemaker or an ICD?: No Airway Exam Known Difficult Airway: No Mallampati Class: 2 Mouth Opening: Normal (> 3cm) Thyromental Distance: Greater than 3 cm Neck Range of Motion: Full ROM Neck Circumference: Normal Teeth Condition: Normal Dentition ASA Classification ASA Score: ASA 2 Emergency Case?: No NPO Status NPO Status: NPO Clears >2 hours, Solids >8 hours Anesthesia Plan Resuscitation Status: Full Code Anesthesia Technique: MAC Anesthesia Airway Planned: Natural Airway Monitors Used: Standard Monitors
[2022-01-15 09:00] VITALS: BMI 31.6
[2022-01-15] MEDS: Tropicam./Phenyleph. (1/2.5%) 5 ML BTL OD ×3 (09:00→09:15)
[2022-01-15] MEDS: Tetracaine 0.5% 4 ML BTL OD (10:09)
[2022-01-15] MEDS: Balanced Salt Soln.-PLUS 500 ML BAG (10:10)
[2022-01-15] MEDS: Lidocaine 2% Jelly 6 ML SYR (10:13)
[2022-01-15] MEDS: Povidone-Iodine Ophth 30 ML BTL (10:22)
--- NOTE | 2022-01-15 10:30 | W.PM.DSUDISC ---
Discharge Plan Disposition Patient Disposition: HOME Condition: Good Discharge Details Attending Provider: Flakito Riojas Primary Care Provider: Mauri Gee [place] Meds and New Rx's Prescriptions: No Action citalopram 10 mg tablet 10 mg PO DAILY cholecalciferol (vitamin D3) 1,000 unit capsule 1,000 unit PO DAILY omega-3 fatty acids 500 mg capsule 500 mg PO DAILY hydrochlorothiazide 25 mg Tablet 25 mg PO DAILY Eliquis 5 MG tablet 5 mg PO BID acetaminophen 500 mg tablet 1,000 mg PO Q8H PRN (Reason: pain) Qty: 90 3RF Discharge Instructions Stand Alone Forms: Post-op Topical Cataract, Nita Lyons (DSU) Discharge Orders Discharge Orders: Discharge Order (Routine); Ordered 01/15/22 Ordered By: Flakito Riojas DS: Diagnosis Discharge Diagnosis (1) Cortical cataract of left eye: Status: Resolved (2) Nuclear sclerotic cataract of left eye: Status: Resolved
--- NOTE | 2022-01-15 10:32 | ROE_ITS ---
Date of service: 01/15/22 Time of Service: 10:32 Operative Note Operative Note DATE OF PROCEDURE: 01/15/22 PRE-OP DIAGNOSIS: Nuclear/cortical cataract, left eye POST-OP DIAGNOSIS: same PROCEDURE: Cataract extraction using phacoemulsification with intraocular lens implant, left eye SURGEON: Flakito Riojas ANESTHESIA TYPE: Local By Surgeon and MAC Refer to Anesthesia Record PATHOLOGY: none sent COMPLICATIONS: None Patient was transported to: same day Patient's condition: stable Implants: [employer] / [employer] Tecnis [id number] Indications: Progressive decreased vision due to cataract, left eye Procedure Description: CATARACT SURGERY OPERATIVE REPORT PREOPERATIVE DIAGNOSIS: 1. Nuclear/cortical cataract, left eye POSTOPERATIVE DIAGNOSIS: Same OPERATION: 1. Cataract extraction using phacoemulsification with posterior chamber intraocular lens implant, left eye. IOL: IOL Mushroom Packer/Model: [employer] Maz[employer] / VAIBHAV Tecnis [id number] IOL Power: + 23.5 diopters IOL Serial Number: [id number] Optic Diameter: 6.0 mm Haptic/Overall Diameter: 13.0 mm PHACO INFO: Haseeb TRADE TO REBATEurion Vision System with OZil and Active [employer]uidics Cumulative Dispersed Energy (CDE): 14.33 seconds SURGEON: Flakito Riojas MD, RENARD ANESTHESIA: Monitored A [facility] (MAC), with local sub-tenon's anesthetic infiltration COMPLICATIONS: None SPECIMENS: None INDICATIONS FOR PROCEDURE: The patient is a 66-year-old lady with history of severe maculae of the left eye. She has been seen in [place] previously for this. She has a history of macular scarring of the left eye. She has developed a nuclear/cortical cataract in the left eye and desires cataract surgery and attempt to improve and maximize her vision, although understands the postoperative visual acuity will be limited by the presence of her maculopathy. PROCEDURE: The correct surgical eye was identified and marked as the left eye and the pupil was dilated in the preoperative area using mydriatics and cycloplegics. The dilated pupil size was 6.0 mm. The patient elected to proceed without oral sedation. The patient was brought to the operating room where cardiopulmonary monitoring was instituted and surgical time-out was per formed, confirming the correct operative eye and IOL power. Topical anesthesia was administered and ophthalmic povidone-iodine 5% was instilled into the conjunctival fornices. Lidocaine gel was applied to the cornea and the fiorella-ocular area was prepped with Betadine 10% solution and draped in the usual sterile fashion for intraocular surgery, including an aperture drape. A Tegaderm transparent film dressing was cut in half and used to cover the lashes and lid margins. Care was taken to sequester the lashes and lid margins under the Tegaderm dressing. A lid speculum was placed between the lids of the operative eye and the Haseeb LuxOR Revalia operating microscope was maneuvered into position. Parris scissors were then used to make a conjunctival buttonhole approximately 6mm posterior to the limbus in the inferonasal quadrant. Blunt dissection was carried out to expose bare sclera, and a blunt-tipped sub-tenon?s anesthesia cannula was introduced and passed posteriorly along the globe where non- preserved plain lidocaine was injected into posterior sub-Tenon?s space. A sideport knife was used to make a paracentesis port superiorly/superiortemporally. Intraocular phenylephrine/lidocaine was injected int the anterior chamber.. The anterior chamber was filled with viscoelastic. A keratome knife was used to construct a 2-plane near-clear corneal tunnel extending 2.0mm into clear cornea temporally. A flap was raised on the anterior capsule and capsulorhexis forceps were used to complete a continuous curvilinear capsulorhexis of 5.5 mm. Capsulorhexis was challenging due to constant eye movement. The eye had to be fixated with the second hand to complete and capsulorhexis. Balanced salt solution was then used to perform cortical cleaving hydrodissection and nuclear hydrodelineation until the lens could be freely rotated within the capsular bag. The lens nucleus was then disassembled and removed within the capsular bag and iris plane using phacoemulsification. Residual cortical material was removed using the 45-degree angled silicone I/A tip with 0.3mm port. The posterior capsule was carefully polished to remove as much residual lens epithelial cells as safely possible. The capsular bag was then inflated and the anterior chamber deepened with viscoelastic. The lens implant described above was inserted into the capsular bag using the VAIBHAV Puposky Injector. A Kuglen hook was used to dial the IOL into position. Residual viscoelastic was then removed first from posterior to the IOL, then from the anterior chamber using the I/A handpiece. The lens implant was noted to center nicely within the capsular bag. The incisions were stromally hydrated, and the anterior chamber was reformed using BSS. Then 0.5cc of moxifloxacin 1.0mg/ml were injected into the capsular bag and anterior chamber. The incisions were checked with a Weck spear and found to be secure. Several drops of ophthalmic povidone-iodine 5% were then applied to the eye followed by two drops of Imprimis combination prednisolone/moxifloxacin/nepafenac solution. The drapes were removed and a clear plastic protective eye shield was placed over the eye. The patient was then returned to Same Day Surgery in stable condition.
[2022-01-15 10:34] VITALS: BP 141/67; PULSE 72; RESP 16; TEMP 36.4; O2SAT 96
--- NOTE | 2022-01-15 10:52 | W.ANESPOSTOP ---
Postoperative Evaluation Date, Time and Location Date Performed: 01/15/22 Time Performed: 10:40 Patient Location: Day Surgery Unit Vital Signs Most Recent Imported Vital Signs: Most Recent Vital Signs Temp Pulse Resp BP Pulse Ox 36.4 C L 72 16 141/67 H 96 01/15/22 10:34 01/15/22 10:34 01/15/22 10:34 01/15/22 10:34 01/15/22 10:34 Pain Score Most Recent Pain Score: Most Recent Pain Score Pain Level 0 01/15/22 10:34 Assessment Mental Status: Awake (Alert & Oriented to Patient Baseline) Airway and Respiratory Function: Patent airway with normal (patient baseline) respiratory exam Cardiovascular Function: Hemodynamically Stable Hydration Status: Adequately Hydrated Nausea & Vomiting: No Nausea or Vomiting Pain: Pt. Denies Any Pain Peripheral Nerve Block: Patient did not receive a nerve block
== END 2022-01-15 10:59 | disposition home or self-care (01) ==
PROVIDERS: PCP Family Medicine; Visit Provider Ophthalmology
PROC: (CPT 66984; principal; 2022-01-15 10:30)
DX: H25.12 Age-related nuclear cataract, left eye (principal)
CPT/HCPCS: 66984; V2632

== ENCOUNTER 2022-01-29 08:01 | Day surgery (SDC) | payer BC, SELFPAY ==
[2022-01-29 08:04] VITALS: BP 149/83; PULSE 76; RESP 16; TEMP 36.5; O2SAT 97
[2022-01-29] MEDS: Tropicam./Phenyleph. (1/2.5%) 5 ML BTL OD ×3 (08:15→08:27)
[2022-01-29 08:51] VITALS: BMI 31.4
--- NOTE | 2022-01-29 08:51 | W.ANESPRE ---
General Info Date of Service Date Performed: 01/29/22 Height: 5 ft 2 in Weight: 78 kg Body Mass Index (BMI): 31.4 Surgical Procedure: Operation Date: 01/29/22 10:40 Proposed Procedure Side Surgeon p Cataract Extraction with IOL Implant Right Flakito Riojas MD Meds Allergies and Home Medications Allergies Allergy/AdvReac Type Severity Reaction Status Date / Time No Known Allergies Allergy Unverified 01/29/22 08:16 Home Medication Medication Instructions Recorded citalopram 10 mg tablet 10 mg PO DAILY 10/22/18 apixaban 5 mg tablet (Eliquis) 5 mg PO BID 12/18/18 cholecalciferol (vitamin D3) 25 1,000 unit PO DAILY 12/18/18 mcg (1,000 unit) capsule hydrochlorothiazide 25 mg tablet 25 mg PO HS 12/18/18 omega-3 fatty acids 500 mg capsule 500 mg PO DAILY 12/18/18 acetaminophen 500 mg tablet 1,000 mg PO Q8H PRN pain #90 tabs 12/24/18 Current Visit Medications: Current Medications Generic Name Dose Route Start Last Admin Trade Name Freq PRN Reason Stop Dose Admin Acetaminophen 1,000 mg 01/29/22 06:00 Acetaminophen 500 Mg Tab PO Q4H PRN PRN Miscellaneous Medication 0 ml 01/29/22 06:00 Prednisolone 1%, Moxifloxacin 0.5%, Nepafenac 0.1% 5ml Btl OD DIRECTED [facility] Miscellaneous Medication 0 ml 01/29/22 06:00 01/29/22 08:27 Tropicam./Phenyleph. 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 History of deep venous thrombosis Chronic anticoagulation on Eliquis HTN (hypertension) Psoriasis Surgical History Surgical History History of cataract surgery Tobacco Smoking/Tobacco Use Status: Former Tobacco Use Alcohol Alcohol Intake: current Alcohol intake frequency: a few times a week Alcohol type: wine Substance Use Substance use: Never Substance use type: does not use Vital Signs and Lab Results Vital Signs Most Recent Vital Signs in EMR: Most Recent Vital Signs Temp Pulse Resp BP Pulse Ox 36.5 C 76 16 149/83 H 97 01/29/22 08:04 01/29/22 08:04 01/29/22 08:04 01/29/22 08:04 01/29/22 08:04 Lab Results Blood Type / Crossmatch: No Data to Display Complete Blood Count: White Blood Count 6.30 10^3/uL (4.4-10.8) 01/01/22 11:55 Red Blood Count 3.99 10^6/uL (3.93-5.22) 01/01/22 11:55 Hemoglobin 13.4 g/dL (11.2-15.7) 01/01/22 11:55 Hematocrit 39.5 % (36.0-46.0) 01/01/22 11:55 Platelet Count 159 10^3/uL (130-400) 01/01/22 11:55 Complete Metabolic Panel: Sodium 143 mmol/L (136-145) 01/01/22 11:55 Potassium 3.6 mmol/L (3.5-5.1) 01/01/22 11:55 Chloride 104 mmol/L (98-107) 01/01/22 11:55 Carbon Dioxide 30.5 mmol/L (21.0-32.0) 01/01/22 11:55 BUN 11 mg/dL (7-18) 01/01/22 11:55 Creatinine 0.6 mg/dL (0.55-1.02) 01/01/22 11:55 Est GFR (CKD-EPI 2020) 99.55 (mL/min/1.73m2) 01/01/22 11:55 Magnesium 1.2 mg/dL (1.8-2.4) L 01/01/22 11:55 Calcium 8.9 mg/dL (8.5-10.1) 01/01/22 11:55 Albumin 3.9 g/dL (3.4-5.0) 01/01/22 11:55 Glucose 76 mg/dL (74-106) 01/01/22 11:55 Liver Function Panel: Alanine Aminotransferase (ALT/SGPT) 34 U/L (14-59) 01/01/22 11:55 Aspartate Amino Transf (AST/SGOT) 35 U/L (15-37) 01/01/22 11:55 Coagulation Panel: No Data to Display Cardiac Panel: No Data to Display Arterial Blood Gas: No Data to Display Venous Blood Gas: No Data to Display Pancreas Panel: No Data to Display Thyroid Panel: No Data to Display Infectious Disease: No Data to Display Blood Cultures: No Data to Display Toxicology Panel: No Data to Display Anesthesia Assessment and Plan Anesthesia History Personal History: No History of Anesthesia Complications Family History: No Family History of Anesthesia Complications Exercise Tolerance Exercise Tolerance: Metabolic Equivalents>4 Pertinent Negatives Pertinent Negatives: No Symptoms of GERD, No Major Cardiovascular Symptoms or Complaints, No Major Pulmonary Symptoms or Complaints and No History of CVA/TIA Cardiac & Pulmonary Exam Cardiac Exam: Normal S1/S2 Heart Sounds Pulmonary Exam: Clear Bilateral Breath Sounds Implantable Cardiac Device Does patient have a Pacemaker or an ICD?: No Airway Exam Known Difficult Airway: No Mallampati Class: 3 Mouth Opening: Normal (> 3cm) Thyromental Distance: Greater than 3 cm Neck Range of Motion: Full ROM Neck Circumference: Normal Teeth Condition: Normal Dentition ASA Classification ASA Score: ASA 3 Emergency Case?: No NPO Status NPO Status: NPO Clears >2 hours, Solids >8 hours Anesthesia Plan Resuscitation Status: Full Code Anesthesia Technique: MAC Anesthesia Airway Planned: Natural Airway Monitors Used: Standard Monitors
[2022-01-29] MEDS: Tetracaine 0.5% 4 ML BTL OD (08:57)
[2022-01-29] MEDS: Duovisc Viscoelastic System EACH 1 EACH (08:57)
[2022-01-29] MEDS: Balanced Salt Soln.-PLUS 500 ML BAG (08:57)
[2022-01-29] MEDS: Lidocaine 2% Jelly 6 ML SYR (08:58)
[2022-01-29] MEDS: Povidone-Iodine Ophth 30 ML BTL (08:59)
[2022-01-29 09:12] VITALS: BP 140/75; PULSE 75; RESP 16; TEMP 36.9; O2SAT 96
--- NOTE | 2022-01-29 09:16 | W.PM.DSUDISC ---
Date of service: 01/29/22 Time of Service: 09:16 Discharge Plan Disposition Patient Disposition: HOME Condition: Good Discharge Details Attending Provider: Flakito Riojas Primary Care Provider: Mauri Gee [place] Meds and New Rx's Prescriptions: No Action citalopram 10 mg tablet 10 mg PO DAILY cholecalciferol (vitamin D3) 1,000 unit capsule 1,000 unit PO DAILY omega-3 fatty acids 500 mg capsule 500 mg PO DAILY hydrochlorothiazide 25 mg Tablet 25 mg PO HS Eliquis 5 MG tablet 5 mg PO BID acetaminophen 500 mg tablet 1,000 mg PO Q8H PRN (Reason: pain) Qty: 90 3RF Discharge Instructions Stand Alone Forms: Post-op Topical Cataract, Nita Lyons (DSU) Discharge Orders Discharge Orders: Discharge Order (Routine); Ordered 01/29/22 Ordered By: Flakito Riojas
--- NOTE | 2022-01-29 09:17 | ROE_ITS ---
Date of service: 01/29/22 Time of Service: 09:17 Operative Note Operative Note DATE OF PROCEDURE: 01/29/22 PRE-OP DIAGNOSIS: Nuclear/cortical cataract, right eye POST-OP DIAGNOSIS: same PROCEDURE: Cataract extraction using phacoemulsification with intraocular lens implant, right eye SURGEON: Flakito Riojas ANESTHESIA TYPE: Local By Surgeon and MAC Refer to Anesthesia Record ESTIMATED BLOOD LOSS: 0 PATHOLOGY: none sent COMPLICATIONS: None Patient was transported to: same day Patient's condition: stable Implants: [employer]/VAIBHAV Tecnis [id number] Indications: Progressive visual loss due to cataract, right eye Procedure Description: CATARACT SURGERY OPERATIVE REPORT PREOPERATIVE DIAGNOSIS: 1. Nuclear/cortical cataract, right eye POSTOPERATIVE DIAGNOSIS: Same OPERATION: 1. Cataract extraction using phacoemulsification with posterior chamber intraocular lens implant, right eye. IOL: IOL Sodium Methylate Operator/Model: [employer] / VA[employer]HAV Tecnis [id number] IOL Power: + 22.0 diopters IOL Serial Number: [id number] Optic Diameter: 6.0mm Haptic/Overall Diameter: 13.0mm PHACO INFO: Haseeb [employer]fasturion Vision System with OZil and Active Fluidics Cumulative Dispersed Energy (CDE): 12.11 seconds SURGEON: Flakito Riojas MD, RENARD ANESTHESIA: Monitored Anesthesia Care (MAC), with local sub-tenon's anesthetic infiltration COMPLICATIONS: None SPECIMENS: None INDICATIONS FOR PROCEDURE: The patient is a 66-year-old lady with history of diminished visual acuity in both eyes secondary to the development of bilateral nuclear/cortical cataract. She has exudative ARMD of the left eye which limits her postoperative visual acuity. She now presents for cataract surgery in the right eye. PROCEDURE: The correct surgical eye was identified and marked as the right eye and the pupil was dilated in the preoperative area using mydriatics and cycloplegics. The dilated pupil size was 6.0 mm. The patient elected to proceed without oral sedation. The patient was brought to the operating room where cardiopulmonary monitoring was instituted and surgical time-out was performed, confirming the correct operative eye and IOL power. Topical anesthesia was administered and ophthalmic povidone-iodine 5% was instilled into the conjunctival fornices. Lidocaine gel was applied to the cornea and the fiorella-ocular area was prepped with Betadine 10% solution and draped in the usual sterile fashion for intraocular surgery, including an aperture drape. A Tegaderm transparent film dressing was cut in half and used to cover the lashes and lid margins. Care was taken to sequester the lashes and lid margins under the Tegaderm dressing. A lid speculum was placed between the lids of the operative eye and the Haseeb LuxOR Revalia operating microscope was maneuvered into position. Parris scissors were then used to make a conjunctival buttonhole approximately 6mm posterior to the limbus in the inferonasal quadrant. Blunt dissection was carried out to expose bare sclera, and a blunt-tipped sub-tenon?s anesthesia cannula was introduced and passed posteriorly along the globe where non- preserved plain lidocaine was injected into posterior sub-Tenon?s space. A sideport knife was used to make a paracentesis port inferotemporally. Intraocular phenylephrine/lidocaine was injected into the anterior chamber. The anterior chamber was filled with viscoelastic. A keratome knife was used to construct a 2-plane near-clear corneal tunnel extending 2.0mm into clear cornea superiortemporally. A flap was raised on the anterior capsule and capsulorhexis forceps were used to complete a continuous curvilinear capsulorhexis of 5.5 mm. Balanced salt solution was then used to perform cortical cleaving hydrodissection and nuclear hydrodelineation until the lens could be freely rotated within the capsular bag. The lens nucleus was then disassembled and removed within the capsular bag and iris plane using phacoemulsification. Residual cortical material was removed using the I/A handpiece. The posterior capsule was carefully polished to remove as much residual lens epithelial cells as safely possible. The capsular bag was then inflated and the anterior chamber deepened with viscoelastic. The lens implant described above was inserted into the capsular bag using the VAIBHAV [place] Injector. A Kuglen hook was used to dial the IOL into position. Residual viscoelastic was then removed first from posterior to the IOL, then from the anterior chamber using the I/A handpiece. The lens implant was noted to center nicely within the capsular bag. The incisions were stromally hydrated, and the anterior chamber was reformed using BSS. Then 0.5cc of moxifloxacin 1.0mg/ml were injected into the capsular bag and anterior chamber. The incisions were checked with a Weck spear and found to be secure. Several drops of ophthalmic povidone-iodine 5% were then applied to the eye followed by two drops of Imprimis combination prednisolone/moxifloxacin/nepafenac solution. The drapes were removed and a clear plastic protective eye shield was placed over the eye. The patient was then returned to [facility] in stable condition.
--- NOTE | 2022-01-29 09:39 | W.ANESPOSTOP ---
Postoperative Evaluation Date, Time and Location Date Performed: 01/29/22 Time Performed: 09:14 Patient Location: Day Surgery Unit Vital Signs Most Recent Imported Vital Signs: Most Recent Vital Signs Temp Pulse Resp BP Pulse Ox 36.9 C 75 16 140/75 96 01/29/22 09:12 01/29/22 09:12 01/29/22 09:12 01/29/22 09:12 01/29/22 09:12 Pain Score Most Recent Pain Score: Most Recent Pain Score Pain Level 0 01/29/22 09:12 Assessment Mental Status: Awake (Alert & Oriented to Patient Baseline) Airway and Respiratory Function: Patent airway with normal (patient baseline) respiratory exam Cardiovascular Function: Hemodynamically Stable Hydration Status: Adequately Hydrated Nausea & Vomiting: No Nausea or Vomiting Pain: Pt. Denies Any Pain Peripheral Nerve Block: Other (Local by Dr. Riojas)
== END 2022-01-29 09:36 | disposition home or self-care (01) ==
LOC: SUR 08:01
PROVIDERS: PCP Family Medicine; Visit Provider Ophthalmology
PROC: (CPT 66984; principal; 2022-01-29 10:30)
DX: H25.011 Cortical age-related cataract, right eye (principal); I10 Essential (primary) hypertension; Z79.01 Long term (current) use of anticoagulants
CPT/HCPCS: 66984; V2632

== ENCOUNTER 2022-10-31 18:46 | Outpatient (REF) | payer MEDICARE, BC, SELFPAY ==
[2022-11-05 09:32] LABS: ALT 24 U/L (14-59); AST 23 U/L (15-37); Albumin 4.3 g/dL (3.4-5.0); Alkaline Phosphatase 67 U/L (46-116); Anion Gap 7.8 mmol/L (3-11); BUN 18 mg/dL (7-18); Bilirubin, Total 0.7 mg/dL (0.2-1.0); CO2 29.2 mmol/L (21.0-32.0); CREATININE 0.8 mg/dL (0.55-1.02); Chloride 100 mmol/L (98-107); Estimated GFR 78.24 (mL/min/1.73m2); Glucose 85 mg/dL (74-106); Magnesium 1.6 mg/dL (1.8-2.4); Potassium 3.9 mmol/L (3.5-5.1); Sodium 137 mmol/L (136-145); Total Protein 7.3 g/dL (6.4-8.2)
== END 2022-10-31 18:47 | disposition home or self-care (01) ==
LOC: NCHCN 18:46
PROVIDERS: PCP Family Medicine; Visit Provider Family Medicine
DX: E61.2 Magnesium deficiency (principal)
CPT/HCPCS: 80053; 83735

== ENCOUNTER 2024-05-29 13:27 | Outpatient (REF) | payer MEDICARE, BC, SELFPAY ==
[2024-05-29 16:13] LABS: Anion Gap 7.4 mmol/L (3-11); BUN 16 mg/dL (7-18); CO2 30.6 mmol/L (21.0-32.0); CREATININE 0.8 mg/dL (0.55-1.02); Calcium 10.1 mg/dL (8.5-10.1); Chloride 102 mmol/L (98-107); Estimated GFR 77.75 (mL/min/1.73m2); Glucose 90 mg/dL (74-106); Magnesium 1.3 mg/dL (1.8-2.4); Potassium 3.6 mmol/L (3.5-5.1); Sodium 140 mmol/L (136-145)
== END 2024-05-29 13:28 | disposition home or self-care (01) ==
LOC: NCHCN 13:27
PROVIDERS: PCP Family Medicine; Visit Provider Student in an Organized Health Care Education/Training Program
DX: I10 Essential (primary) hypertension (principal)
CPT/HCPCS: 80048; 83735

== ENCOUNTER 2024-06-29 12:12 | Outpatient (REF) | payer MEDICARE, BC, SELFPAY ==
[2024-06-29 16:22] LABS: Anion Gap 6.7 mmol/L (3-11); BUN 13 mg/dL (7-18); CO2 33.3 mmol/L (21.0-32.0); CREATININE 0.8 mg/dL (0.55-1.02); Chloride 105 mmol/L (98-107); Estimated GFR 77.75 (mL/min/1.73m2); Glucose 91 mg/dL (74-106); Magnesium 1.3 mg/dL (1.8-2.4); Potassium 3.9 mmol/L (3.5-5.1); Sodium 145 mmol/L (136-145)
== END 2024-06-29 12:13 | disposition home or self-care (01) ==
LOC: NCHCN 12:12
PROVIDERS: PCP Student in an Organized Health Care Education/Training Program; Visit Provider Student in an Organized Health Care Education/Training Program
DX: I10 Essential (primary) hypertension (principal)
CPT/HCPCS: 80048; 83735